=== PATIENT | male | born 1960 | race Caucasian/White ===

== ENCOUNTER 2019-03-15 00:34 | Emergency (ER) | payer SELFPAY ==
[2019-03-15 00:49] VITALS: BP 125/81; PULSE 66; RESP 18; O2SAT 98; BMI 15.0
--- NOTE | 2019-03-15 00:51 | ED_ITS ---
HPI - General Adult General Chief complaint: Arrhythmia/Palpitations Stated complaint: hearing something irregular in neck area Time Seen by Provider: 03/15/19 00:36 Source: patient Mode of arrival: Ambulatory Limitations: no limitations History of Present Illness HPI narrative: Patient is a 58-year-old male here for evaluation of symptoms that he describes as a thumping or a pounding sensation in the left side of his head/behind his left ear. He states it has been going on for the past 3 days. He has no other associated symptoms with that. No trauma. No headache. No vision changes. He states that when he feels the symptoms going on he checks his own pulse and it is regular. He states that the symptoms will speed up and slow down and he has periods of time when he has no symptoms. No ringing in his ears. No balance problems. Related Data Allergies Allergy/AdvReac Type Severity Reaction Status Date / Time No Known Drug Allergies Allergy Verified 03/15/19 00:52 Review of Systems Constitutional Constitutional: Reports fatigue, Denies fever(s) and Denies headache(s) Eyes Eyes: Denies loss of vision ENT Ears, Nose, Mouth, and Throat: Denies vertigo, Denies dizziness and Denies hea dache(s) Comments: Thumping on the left side of his head behind his left ear Cardiovascular Cardiovascular: Denies chest pain, Denies palpitations and Denies dyspnea Respiratory Respiratory: Denies cough and Denies dyspnea Gastrointestinal Gastrointestinal: Denies abdominal pain, Denies nausea and Denies vomiting Genitourinary Genitourinary: Denies dysuria Musculoskeletal Musculoskeletal: Denies myalgias, Denies arthralgias, Denies numbness and Denies tingling Integumentary/Breasts Skin/Breast: Denies lesions and Denies rash Neurologic Neurologic: Denies behavioral changes, Denies confusion, Denies vertigo, Denies dizziness, Denies headache(s), Denies focal weakness, Denies loss of vision, Denies numbness, Denies radicular pain, Denies restless legs, Denies convulsions, Denies sensory deficit, Denies tingling and Denies paresthesias Psychiatric Psychiatric: Denies behavioral changes and Denies confusion Endocrine Endocrine: Reports fatigue and Denies palpitations Hematologic/Lymphatic Hematologic/Lymphatic: Denies easy bleeding and Denies easy bruising Allergic/Immunologic Allergic/Immunologic: Denies urticaria [facility] Medical History Patient denies medical problems (Acute) Social History Smoking Status: Never smoker Social History Smoking Status: Never smoker Exam Initial Vital Signs Initial Vital Signs: Vital Signs Pulse Rate 66 03/15/19 00:49 Respiratory Rate 18 03/15/19 00:49 Blood Pressure 125/81 03/15/19 00:49 Pulse Oximetry 98 03/15/19 00:49 Const General: cooperative, healthy appearing, comfortable, well developed, well groomed and No acute distress Orientation: alert, awake and oriented x3 HENMT Head: normal to inspection and normocephalic Ears: TM normal on the right, EAC's normal and other (Left TM obscured by cerumen) Eyes Pupils: PERRL EOM: EOM intact bilaterally Neck Neck: trachea midline and No JVD Carotids: pulses diminished Lymphatic: No lymphadenopathy Resp Effort & Inspection: normal respiratory effort Auscultation: clear to auscultation bilaterally Cardio Rate: regular rate Rhythm: regular rhythm Pulses: radial pulses present Skin Lesions: no lesions Rashes: no rashes Neuro General: alert, awake and oriented x3 Speech: speech normal Gait: normal gait Motor: muscle tone normal throughout Extrem General: normal to inspection and capillary refill normal Psych Appearance: grossly normal and well kempt Scores GCS [place] coma scale eye opening: Spontaneous [place] coma scale verbal response: Orientated [place] coma scale motor response: Obey commands [place] coma scale total score: 15 Course Orders Ordered: ED Orders 03/15/19 00:43 EKG-12 Lead Stat Vital Signs Vital signs: Vital Signs - 8 hr 03/15/19 00:49 Pulse Rate 66 Respiratory Rate 18 Blood Pressure 125/81 Pulse Oximetry 98 Medical Decision Making ECG Data Attestation: I personally reviewed and interpreted this ECG as follows: Prior ECG tracings: not available for review Interpretation: Sinus rhythm Ventricular rate is 70 Sinus arrhythmia Normal QRS Normal QTC Normal axis No ST T wave changes MDM Narrative Medical decision making narrative: Patient has sinus arrhythmia on his EKG otherwise unremarkable. He was having the symptoms at the time of this. I do not suspect that his presenting symptoms are related to an arrhythmia. He has a normal exam otherwise. Normal neurologic exam. Low suspicion for CVA. I did discuss this with the patient. He was okay with stopping workup at this point. He wanted to make sure that he was not having a stroke or having an arrhythmia causing his symptoms. We did discuss blood work however he states that since he is uninsured and has to pay [id number] he would like to wait on any unnecessary testing. I informed him that I do feel that blood work would be low yield. I did inform him that if his symptoms do not improve you for potentially need further imaging and to be seen by a ear nose and throat provider. He was given the phone number that he could call to help with establishing a primary provider in the area. He was given return precautions. He expressed understanding and agreement with plan. Discharge Plan Departure Patient Disposition: Home Clinical Impression: Feared complaint without diagnosis Discharge Date/Time: 03/15/19 01:16 Activity Restrictions/Additional Instructions: I recommend on Friday you contact the health family resource management professor here at the hospital at [phone]. They can help you with establishing a primary provider. Your EKG was unremarkable. Unfortunately we do not have an exact reason for your symptoms however do not feel there is an emergent issue. I recommend that you may contact with the primary provider. You can return to the emergency department for any new or worsening symptoms
== END 2019-03-15 01:16 | disposition home or self-care (01) ==
LOC: ED 01:05
PROVIDERS: Emergency Provider Emergency Medicine
DX: R00.2 Palpitations (principal)
CPT/HCPCS: 93005; 93010; 99282; 99283